=== PATIENT | male | born 1965 | race Caucasian/White ===

== ENCOUNTER → 2018-11-21 | Outpatient (CLI) | payer BC ==
--- NOTE | 2018-11-21 16:38 | RAD ---
One view the pelvis and one view right hip HISTORY: Right hip pain COMPARISON: None FINDINGS: The iliopectineal line is intact. Joint space narrowing of both hips are noted greater on the right with subchondral sclerosis and cyst formation seen mostly on the right. No acute fracture or dislocation. Phleboliths are present. IMPRESSION: No acute fracture or dislocation Bilateral hip arthropathy greater on the right Electronically signed by: Rene Chavez MD (11/21/2018 4:36 PM) [facility] [place]
== END | disposition home or self-care (01) ==
LOC: DXRAD 12:06
PROVIDERS: ATTEND Orthopaedic Surgery Sports Medicine
DX: M12.851 Other specific arthropathies, not elsewhere classified, right hip (principal); M12.852 Other specific arthropathies, not elsewhere classified, left hip; I87.8 Other specified disorders of veins; M25.851 Other specified joint disorders, right hip
CPT/HCPCS: 73501

== ENCOUNTER 2020-12-05 09:22 | Inpatient (IN) | payer BC ==
[~2020-12-05] VITALS: Ht 182.9 cm; Wt 104.5 kg
[2020-12-05 10:27] LABS: BASO % 0 % (0-3); EOS % 0 % (0-3); HEMATOCRIT 46.9 % (39.0-53.0); HEMOGLOBIN 16.3 g/dL (13.0-17.5); LYMPH # 0.5 x10^3/uL (1.0-4.8); LYMPH % 6 % (24-48); MEAN CORPUSCULAR HEMOGLOBIN 32 pg (25-35); MEAN CORPUSCULAR HGB CONC 35 g/dL (31-37); MEAN CORPUSCULAR VOLUME 93 fL (79-100); MONO # 0.3 x10^3/uL (0.0-1.1); MONO % 4 % (0-9); NEUT # 6.6 x10^3uL (1.8-7.7); NEUT % 90 % (31-73); PLATELET COUNT 169 x10^3/uL (140-400); RED BLOOD COUNT 5.06 x10^6/uL (4.30-5.70); RED CELL DISTRIBUTION WIDTH 13.2 % (11.5-14.5); WHITE BLOOD COUNT 7.4 x10^3/uL (4.0-11.0)
[2020-12-05 10:52] LABS: CALCIUM 8.6 mg/dL (8.5-10.1); CREATININE 1.1 mg/dL (0.7-1.3); GFR 69.2; POTASSIUM 3.4 mmol/L (3.5-5.1)
[2020-12-05 10:57] LABS: ALBUMIN 3.2 g/dL (3.4-5.0); ALBUMIN/GLOBULIN RATIO 0.8 (1.0-1.7); TOTAL BILIRUBIN 0.8 mg/dL (0.2-1.0); TOTAL PROTEIN 7.2 g/dL (6.4-8.2)
[2020-12-05] MEDS ORDERED: methylPREDNISolone SOD SUCC PF 40 MG/ML VIAL. IV ONE (11:45)
--- NOTE | 2020-12-05 11:46 | PHYS DOC ---
Past History Past Surgical History: Appendectomy General Adult EDM: Chief Complaint: SHORTNESS OF BREATH HPI: HPI: Patient is a 55 year old male who presents with a week of fever/chills, diaphoresis, generalized fatigue, myalgias, headache, cough. Over the past few days has developed worsening shortness of breath. Was exposed to his son who tested positive for Covid. He had a negative rapid test on day 1 of symptoms, and has not been tested again. Prehospital had an oxygen saturation of 82%, so was brought into the emergency department for further evaluation. Denies any chest pain. Review of Systems: Review of Systems: Constitutional: + fever, chills, myalgias, diaphoresis. Eyes: Denies change in visual acuity HENT: Denies nasal congestion or sore throat Respiratory: + cough and SOB Cardiovascular: Denies chest pain or edema GI: + Diarrhea. Denies abdominal pain, nausea, vomiting, bloody stools or diarrhea : Denies dysuria Musculoskeletal: Denies back pain or joint pain Integument: Denies rash Neurologic: Denies headache, focal weakness or sensory changes Endocrine: Denies polyuria or polydipsia Lymphatic: Denies swollen glands Psychiatric: Denies depression or anxiety Family History: Family History: Sinus positive for Covid last week. No other pertinent family history. Allergies: Allergies: Allergies Coded Allergies Type Severity Reaction Last Updated Verified No Known Drug Allergies 12/05/20 No Physical Exam: PE: Constitutional: Diaphoretic and ill-appearing.. [] HENT: Normocephalic, atraumatic, bilateral external ears normal, oropharynx moist, no oral exudates, nose normal. [] Eyes: PERRLA, EOMI, conjunctiva normal, no discharge. [] Neck: Normal range of motion, no tenderness, supple, no stridor. [] Cardiovascular:Heart rate regular rhythm, no murmur [] Lungs & Thorax: Tachypneic. Bilateral crackles. [] Abdomen: Bowel sounds normal, soft, no tenderness, no masses, no pulsatile masses. [] Skin: Warm, dry, no erythema, no rash. [] Back: No tenderness, no CVA tenderness. [] Extremities: No tenderness, no cyanosis, no clubbing, ROM intact, no edema. [] Neurologic: Alert and oriented X 3, normal motor function, normal sensory function, no focal deficits noted. [] Psychologic: Affect normal, judgement normal, mood normal. [] Current Patient Data: Labs: Laboratory Tests Test 12/05/20 09:50 White Blood Count 7.4 x10^3/uL (4.0-11.0) Red Blood Count 5.06 x10^6/uL (4.30-5.70) Hemoglobin 16.3 g/dL (13.0-17.5) Hematocrit 46.9 % (39.0-53.0) Mean Corpuscular Volume 93 fL (79-100) Mean Corpuscular Hemoglobin 32 pg (25-35) Mean Corpuscular Hemoglobin Concent 35 g/dL (31-37) Red Cell Distribution Width 13.2 % (11.5-14.5) Platelet Count 169 x10^3/uL (140-400) Neutrophils (%) (Auto) 90 % (31-73) H Lymphocytes (%) (Auto) 6 % (24-48) L Monocytes (%) (Auto) 4 % (0-9) Eosinophils (%) (Auto) 0 % (0-3) Basophils (%) (Auto) 0 % (0-3) Neutrophils # (Auto) 6.6 x10^3uL (1.8-7.7) Lymphocytes # (Auto) 0.5 x10^3/uL (1.0-4.8) L Monocytes # (Auto) 0.3 x10^3/uL (0.0-1.1) Eosinophils # (Auto) 0.0 x10^3/uL (0.0-0.7) Basophils # (Auto) 0.0 x10^3/uL (0.0-0.2) Sodium Level 138 mmol/L (136-145) Potassium Level 3.4 mmol/L (3.5-5.1) L Chloride Level 101 mmol/L (98-107) Carbon Dioxide Level 25 mmol/L (21-32) Anion Gap 12 (6-14) Blood Urea Nitrogen 20 mg/dL (8-26) Creatinine 1.1 mg/dL (0.7-1.3) Estimated GFR (Cockcroft-Gault) 69.2 BUN/Creatinine Ratio 18 (6-20) Glucose Level 135 mg/dL (70-99) H Lactic Acid Level 1.6 mmol/L (0.4-2.0) Calcium Level 8.6 mg/dL (8.5-10.1) Total Bilirubin 0.8 mg/dL (0.2-1.0) Aspartate Amino Transferase (AST) 61 U/L (15-37) H Alanine Aminotransferase (ALT) 49 U/L (16-63) Alkaline Phosphatase 60 U/L (46-116) Total Protein 7.2 g/dL (6.4-8.2) Albumin 3.2 g/dL (3.4-5.0) L Albumin/Globulin Ratio 0.8 (1.0-1.7) L Vital Signs: Laboratory Tests Test 12/05/20 09:50 White Blood Count 7.4 x10^3/uL Red Blood Count 5.06 x10^6/uL Hemoglobin 16.3 g/dL Hematocrit 46.9 % Mean Corpuscular Volume 93 fL Mean Corpuscular Hemoglobin 32 pg Mean Corpuscular Hemoglobin Concent 35 g/dL Red Cell Distribution Width 13.2 % Platelet Count 169 x10^3/uL Neutrophils (%) (Auto) 90 % Lymphocytes (%) (Auto) 6 % Monocytes (%) (Auto) 4 % Eosinophils (%) (Auto) 0 % Basophils (%) (Auto) 0 % Neutrophils # (Auto) 6.6 x10^3uL Lymphocytes # (Auto) 0.5 x10^3/uL Monocytes # (Auto) 0.3 x10^3/uL Eosinophils # (Auto) 0.0 x10^3/uL Basophils # (Auto) 0.0 x10^3/uL Sodium Level 138 mmol/L Potassium Level 3.4 mmol/L Chloride Level 101 mmol/L Carbon Dioxide Level 25 mmol/L Anion Gap 12 Blood Urea Nitrogen 20 mg/dL Creatinine 1.1 mg/dL Estimated GFR (Cockcroft-Gault) 69.2 BUN/Creatinine Ratio 18 Glucose Level 135 mg/dL Lactic Acid Level 1.6 mmol/L Calcium Level 8.6 mg/dL Total Bilirubin 0.8 mg/dL Aspartate Amino Transf (AST/SGOT) 61 U/L Alanine Aminotransferase (ALT/SGPT) 49 U/L Alkaline Phosphatase 60 U/L Total Protein 7.2 g/dL Albumin 3.2 g/dL Albumin/Globulin Ratio 0.8 Current Medications Medications (Trade) Dose Ordered Sig/Astrid Route PRN Reason Start Time Stop Time Status Last Admin Dose Admin Methylprednisolone Sodium Succinate (SOLU-Medrol 40MG VIAL) 80 mg 1X ONCE IV 12/05/20 11:45 12/05/20 11:47 DC 12/05/20 12:01 Vital Signs Date Time Temp Pulse Resp B/P (MAP) Pulse Ox O2 Delivery O2 Flow Rate FiO2 12/05/20 11:06 84 20 117/69 (85) 92 Nasal Cannula 2.0 12/05/20 09:45 98.5 EKG: EKG: [] Radiology/Procedures: Radiology/Procedures: [address] [address] IMAGING REPORT Signed PATIENT: JORGE GRAYSON PACCOUNT: [id number] : 1965 LOCATION: ER AGE: 55 SEX: M EXAM STATUS: REG ER ORD. PHYSICIAN: CYNTHIA LEAL MD REASON: sob, covid exposure PROCEDURE: CHEST AP ONLY XR CHEST 1V History: Reason: sob, covid exposure / Spl. Instructions: / History: Comparison: None. Findings: Mild ill-defined mid and bibasilar opacities. No pleural effusion. No pneumothorax. Normal heart size. Impression: 1. Mild ill-defined mid and bibasilar opacities, can be seen with viral pneumonia. Electronically signed by: Tien Geller DO (12/05/2020 11:46 AM) [id number] DICTATED AND SIGNED BY: TIEN GELLER DO DATE: 12/05/20 1146 CC: CYNTHIA LEAL MD; ORVILLE RIVER MD ~MTH0 0 [] Heart Score: C/O Chest Pain: N/A Risk Factors: Risk Factors: DM, Current or recent (<one month) smoker, HTN, HLP, family history of CAD, obesity. Risk Scores: Score 0 - 3: 2.5% MACE over next 6 weeks - Discharge Home Score 4 - 6: 20.3% MACE over next 6 weeks - Admit for Clinical Observation Score 7 - 10: 72.7% MACE over next 6 weeks - Early Invasive Strategies Course & Med Decision Making: Course & Med Decision Making Pertinent Labs and Imaging studies reviewed. (See chart for details) Patient is an otherwise healthy 55-year-old male who presents with several days of symptoms consistent with COVID-19 pneumonia in the setting of exposure to household contact. He is not vaccinated. He is hypoxic to the 80s on room air and is requiring 2 L/min nasal cannula to maintain oxygenation. I have given him IV steroids given his O2 requirement. I have tested him for Covid. His presentation is very consistent with a viral pneumonia, I have held off on antibiotics at this time. He has been admitted to the hospitalist for further management. Dragon Disclaimer: Dragon Disclaimer: This electronic medical record was generated, in whole or in part, using a voice recognition dictation system. Departure Departure: Impression: Primary Impression: Viral pneumonia Additional Impression: Suspected COVID-19 virus infection Disposition: ADMITTED INPATIENT Admitting Physician: Rafi Soto Condition: STABLE Referrals: ORVLILE RIVER MD (PCP) CYNTHIA LEAL MD Dec 05, 2020 11:46
--- NOTE | 2020-12-05 11:49 | RAD ---
XR CHEST 1V History: Reason: sob, covid exposure / Spl. Instructions: / History: Comparison: None. Findings: Mild ill-defined mid and bibasilar opacities. No pleural effusion. No pneumothorax. Normal heart size . Impression: 1. Mild ill-defined mid and bibasilar opacities, can be seen with viral pneumonia. Electronically signed by: Tien Geller DO (12/05/2020 11:46 AM) [id number]
[2020-12-05 14:48] VITALS: BP 122/90
--- NOTE | 2020-12-05 15:13 | NUR ---
ADMISSION NOTE Pt admitted by Dr. Soto for PUI for COVID 19. Son has tested positive on and pt started feeling symptoms on morning. Admission completed. Pt currently on 3L via NV at 93-94%. Will continue to monitor. ALEK, RN
[2020-12-05] MEDS ORDERED: MORPHINE SULFATE 2 MG/ML DISP.SYRIN. IV PRN (15:45)
[2020-12-05] MEDS ORDERED: CHOLECALCIFEROL (VITAMIN D3) 50,000 UNIT CAPSULE PO SCH (15:45)
[2020-12-05] MEDS: ACETAMINOPHEN 325 MG TABLET PO PRN (16:19)
[2020-12-05] MEDS: ZINC SULFATE 220 MG CAPSULE. PO SCH (16:19)
[2020-12-05] MEDS: ENOXAPARIN 30 MG/0.3 ML SYRINGE. SQ SCH (16:19)
[2020-12-05] MEDS: ASCORBIC ACID 1,000 MG TABLET PO SCH (16:19)
[2020-12-05] MEDS: CETIRIZINE HCL 10 MG TABLET PO SCH (16:19)
[2020-12-05] MEDS: FAMOTIDINE 20 MG/2 ML VIAL IVP SCH ×2 (16:21→21:14)
--- NOTE | 2020-12-05 16:38 | HP ---
ADMIT DATE: 12/05/2020 ATTENDING PHYSICIAN: Dr. Soto. CHIEF COMPLAINT: Shortness of breath. HISTORY OF PRESENT ILLNESS: The patient is a 55-year-old gentleman, otherwise healthy, daughter has been ill for the last 4 days. He has had cough, congestion, fevers, shortness of breath, and nonproductive cough. He tested positive for most likely the delta variant coronavirus. He had a flu-like symptom last 07/2019 and he thought it was COVID at that time. He has not had his vaccinations. He is a nonsmoker and nondrinker. In the ED, the workup showed that he was hypoxic. He required 2 liters of nasal cannula to maintain sats of 93%. The chest x-ray showed evidence of mild ill-defined mid and bibasilar opacities consistent with a viral pneumonia. He is admitted then with COVID pneumonia and acute respiratory failure. PAST MEDICAL HISTORY: Significant for some degenerative arthritis. He has had an appendectomy. No history of heart disease. SOCIAL HISTORY: Nonsmoker and nondrinker. He is retired, working for the [employer]. He is an avid jaswinder. He is in good shape otherwise. CURRENT MEDICATIONS: None. ALLERGIES: No known drug allergies. FAMILY HISTORY: He is . Children are grown. He has 5 kids. REVIEW OF SYSTEMS: Significant for the myalgias. He has lost sense of taste, low-grade fevers, congestion, shortness of breath and dyspnea with minimal exertion. PHYSICAL EXAMINATION: GENERAL: When I saw him, this is a pleasant gentleman who was fairly alert. He did not appear to be toxic. VITAL SIGNS: His initial vital signs showed a blood pressure of 122/90, pulse is 83 and regular, temperature 99.1 degrees Fahrenheit, oxygen saturation 94% on 2 liters by nasal cannula. HEENT: Head is without trauma. Pupils are reactive. Sclerae nonicteric. Oropharynx is clear. NECK: Supple. No bruits identified. LUNGS: Otherwise, he has good breath sounds. He has diminished breath sounds at the bases with some rhonchi. CARDIOVASCULAR: Showed regular heart tones. No gallops. ABDOMEN: Soft. EXTREMITIES: Without edema. NEUROLOGIC: Focally intact. SKIN: Warm and dry. PERTINENT LABORATORY STUDIES: His hemoglobin was 16.3 g/dL with a white count of 7400. Potassium was 3.4 mEq, sodium 138 mEq, nonfasting blood sugar is 135 mg/dL. ASSESSMENT: 1. A 55-year-old gentleman with COVID-19 coronavirus pneumonia bilaterally. 2. Hypoxemia, requiring some supplemental oxygen. 3. Dysgeusia. PLAN: 1. Admit to the inpatient unit. 2. Empiric Solu-Medrol. 3. Remdesivir has been shown not to be beneficial and will not be considered. 4. Empiric Lovenox. 5. Elemental zinc. 6. Nebulizer therapy. 7. Diet as tolerated. KENYATTA DR: Cristina TID: [id number] CC: Nazario Colmenares
[2020-12-05 19:36] VITALS: BP 130/93
[2020-12-05] MEDS: IPRATROPIUM/ALBUTEROL 20/100mcg/INH INHALER. INH SCH (21:14)
[2020-12-05] MEDS: ALBUTEROL SULFATE 8GM INHALER. INH PRN (21:15)
[2020-12-05] MEDS: methylPREDNISolone SOD SUCC PF 125 MG/2 ML VIAL. IV SCH (21:15)
[2020-12-05 23:15] VITALS: BP 123/86
[2020-12-06] MEDS: methylPREDNISolone SOD SUCC PF 125 MG/2 ML VIAL. IV SCH ×2 (05:32→13:14)
[2020-12-06 05:50] VITALS: BP 126/85
--- NOTE | 2020-12-06 05:50 | NUR ---
Pt A&Ox4, very pleasant and cooperative with cares and assessments. Pt ate HS snack independently. Pt slept "decent during the night, had a few coughing spells." Pt without fever or need for O2 increase, maintained O2 sat at 91-94% on 3L NC. Pt +Covid. Pt refused shower this AM, stating "I need to have a bowel movement before I shower...can't have dirt in my ditch all day."
[2020-12-06] MEDS: ZINC SULFATE 220 MG CAPSULE. PO SCH (08:06)
[2020-12-06] MEDS: CETIRIZINE HCL 10 MG TABLET PO SCH (08:06)
[2020-12-06] MEDS: IPRATROPIUM/ALBUTEROL 20/100mcg/INH INHALER. INH SCH ×3 (08:06→16:01)
[2020-12-06] MEDS: FAMOTIDINE 20 MG/2 ML VIAL IVP SCH (08:07)
[2020-12-06] MEDS: ASCORBIC ACID 1,000 MG TABLET PO SCH (08:08)
[2020-12-06] MEDS: ACETAMINOPHEN 325 MG TABLET PO PRN (09:16)
--- NOTE | 2020-12-06 10:25 | NUR ---
PATIENT IS IN A BED AWAKE UPON ASSESSMENT THIS AM, CALM AND COOPERATIVE. O2 SAT ASSESSED, PATIENT IS ON 3L OF O2 VIA NC WITH SAT 86%, SUPPLEMENTAL O2 INCREASED UP TO 6 L WITHOUT ANY O2 SAT IMPROVEMENT. DOCTOR HO NOTIFIED. PATIENT IS PLACED ON NON REBREATHER AT 12L OF OXYGEN, PATIENT IS CURRENTLY IS AT 91% AT REST.
[2020-12-06] MEDS ORDERED: BUDESONIDE 0.5 MG/2 ML NEBU ONE (10:51)
[2020-12-06 11:49] LABS: BGAS PH 7.46 (7.35-7.46)
[2020-12-06 11:54] VITALS: BP 116/77
[2020-12-06] MEDS: ALBUTEROL SULFATE 8GM INHALER. INH PRN (12:11)
--- NOTE | 2020-12-06 13:07 | DS ---
DATE OF DISCHARGE: 12/06/2020 ATTENDING PHYSICIAN: Dr. Soto. FINAL DISCHARGE DIAGNOSES: 1. Bilateral COVID-19 coronavirus pneumonia. 2. Acute hypoxemic respiratory failure. 3. Dysgeusia. HISTORY AND PHYSICAL: The patient is a pleasant, healthy 55-year-old gentleman presenting with a 3-day history of shortness of breath, nonproductive cough, fevers, and most likely the delta variant of the coronavirus. He had flu-like symptoms last year in July. He thought he had COVID at that time. He did not get vaccination assuming that he had natural antibodies. He is a nonsmoker, nondrinker. Otherwise, fairly healthy. On this episode, a daughter as well as a son also came down with similar symptoms. PAST MEDICAL HISTORY: He has had an appendectomy. He had some mild arthritis. There is no history of diabetes or heart disease. He has no known drug allergies. He is not on any current medicines. PHYSICAL EXAMINATION: Please see the dictated note. PERTINENT LABORATORY AND X-RAY STUDIES: Admission hemoglobin was 16.3 g/dL with a white count of 7400. Electrolytes within normal range. Creatinine is 1.1 mg percent. Transaminases are normal. Lactic acid was 1.6. Serology was indeed positive for the COVID coronavirus by PCR technology. On the second hospital day, he had arterial blood gases drawn on 80% oxygen, pH was 7.46, pCO2 of 38, and pO2 of only 53 mmHg suggesting a significant shunt. COURSE IN THE HOSPITAL: The patient was admitted to our hospital. He was given supplemental oxygen, a metered dose inhaler or elemental zinc, empiric Lovenox and also intravenous Solu-Medrol. He felt all right throughout the night, but his oxygen saturations did not and gradually since admission he required a higher and higher oxygen liter flow to maintain adequate saturations. By the second hospital day, arterial blood gas showed a significant shunt with a pO2 of 53 mmHg on 80% oxygen. Therefore, in discussion with the patient, arrangements were made for transfer to a higher level of care. I had arrangements for him to go to [facility] initially to the telemetry unit with anticipation that should things get worse, he may need further intervention and intubation of the trachea. We are not at that stage yet, but it is certainly a possibility given his decline. Therefore, on the second hospital day, the patient was transferred to [facility] for further treatment of acute respiratory failure related to his pneumonia. He will continue high flow oxygen, Solu-Medrol, breathing treatments and p.o. zinc. Regular diet as tolerated. His prognosis is guarded. The patient was then discharged from our hospital in stable condition with explicit drug and followup care at [facility]. I spoke with the hospitalist regional safety manager. He will be admitted to the hospitalist service there. Total discharge time spent was [address]: Cristina TID: [id number] CC: Dr. Nazario Colmenares
[2020-12-06] MEDS: ENOXAPARIN 30 MG/0.3 ML SYRINGE. SQ SCH (13:15)
[2020-12-06] MEDS ORDERED: HYDROcodone/CHLORPHEN POLIS 5 ML SUS.ER.12H PO PRN (13:45)
[2020-12-06 15:19] VITALS: BP 137/81
--- NOTE | 2020-12-06 16:57 | NUR ---
PATIENT IS TRANSFERRED TO [facility] FOR HIGHER LEVEL OF CARE. REPORT IS GIVEN TO ZHAO CASEY. PATIENT LEFT ROOM 103 VIA EMS.
== END 2020-12-06 16:55 | disposition short-term general hospital (02) | DRG 177 ==
LOC: ER 09:22 → 1 SOUTH 13:17
PROVIDERS: ADMIT Hospitalist; ATTEND Hospitalist
PROC: 5A0935A Assistance with Respiratory Ventilation, Less than 24 Consecutive Hours, High Flow/Velocity Cannula (ICD-10-PCS; principal; 2020-12-06)
DX: U07.1 COVID-19 (principal); J12.82 Pneumonia due to coronavirus disease 2019; J96.01 Acute respiratory failure with hypoxia; M19.90 Unspecified osteoarthritis, unspecified site; R43.2 Parageusia; Z90.49 Acquired absence of other specified parts of digestive tract
CPT/HCPCS: 36415; 71045; 80053; 82803; 83605; 85025; 87040; 96374; J1650; J2920; J2930; J3490; U0003; 99285-25